=== PATIENT | male | born 1945 | race Two or more races ===

== ENCOUNTER 2019-06-09 21:10 | Emergency (ER) | payer MEDICARE, MEDICAID ==
[~2019-06-09] VITALS: Ht 182.9 cm; Wt 104.0 kg
[2019-06-09 22:15] LABS: BASOPHILS % (AUTO) 0.5 % (0-1); EOSINOPHILS # (AUTO) 0.3 X10'3 (0-0.9); EOSINOPHILS % (AUTO) 4.1 % (0-6); HEMATOCRIT 36.4 % (42.0-52.0); HEMOGLOBIN 12.7 g/dl (14.0-17.9); LYMPHOCYTES # (AUTO) 1.9 X10'3 (1.1-4.8); LYMPHOCYTES % (AUTO) 24.6 % (21-51); MEAN CORPUSCULAR HEMOGLOBIN 32.9 PG (27.0-31.0); MEAN CORPUSCULAR HGB CONC 34.9 g/dL (33.0-36.5); MEAN CORPUSCULAR VOLUME 94.1 FL (78-98); MONOCYTES # (AUTO) 0.6 X10'3 (0-0.9); MONOCYTES % (AUTO) 7.2 % (2-12); NEUTROPHILS # (AUTO) 4.9 X10'3 (1.8-7.7); NEUTROPHILS % (AUTO) 63.6 % (42-75); PLATELET COUNT 158 X10'3 (140-440); RED BLOOD COUNT 3.86 X10'6 (4.70-6.10); WHITE BLOOD COUNT 7.7 X10'3 (4.5-11.0)
[2019-06-09 22:25] LABS: PARTIAL THROMBOPLASTIN TIME 27 SECONDS (22-32)
[2019-06-09 22:31] LABS: ALANINE AMINOTRANSFERASE 32 U/L (12-78); ALBUMIN 3.2 G/DL (3.4-5.0); ALBUMIN/GLOBULIN RATIO 0.7 (1.1-1.5); ALKALINE PHOSPHATASE 103 IU/L (46-116); ANION GAP 8 (8-16); ASPARTATE AMINO TRANSFERASE 37 U/L (10-37); BILIRUBIN,TOTAL 0.2 MG/DL (0.1-1.0); BLOOD UREA NITROGEN 23 MG/DL (7-18); CALCIUM 8.3 MG/DL (8.5-10.1); CHLORIDE 110 MMOL/L (99-107); CREATININE 1.53 MG/DL (0.60-1.10); GLUCOSE 190 MG/DL (70-104); POTASSIUM 4.1 MMOL/L (3.5-5.1); SODIUM 142 MMOL/L (135-145); TOTAL CARBON DIOXIDE 24.4 MMOL/L (24-32); TOTAL PROTEIN 7.7 G/DL (6.4-8.2); eGFR 45 ML/MIN
--- NOTE | 2019-06-09 23:41 | NUR ---
PATIENT STILL UNABLE TO VOID DR MEDRANO AWARE
[2019-06-09] MEDS ORDERED: AMLO2.5T2 PO (23:55)
[2019-06-09] MEDS ORDERED: GLYB2.5T4 PO (23:56)
[2019-06-09] MEDS ORDERED: SITA1TAB6 PO (23:56)
[2019-06-09] MEDS ORDERED: LISI-600 PO (23:56)
[2019-06-09] MEDS ORDERED: FLO0.4C PO (23:56)
--- NOTE | 2019-06-09 23:56 | NUR ---
I CALLED [facility] AND SPOKE WITH PHARMACIST TO GET A CURRENT LIST OF MEDICATIONS FOR DR. MEDRANO
[2019-06-10] MEDS ORDERED: lisinopril 10 MG tablet PO ONE (00:10)
[2019-06-10] MEDS ORDERED: amLODIPine 5mg tablet PO ONE (00:10)
[2019-06-10] MEDS ORDERED: metFORMIN 500mg tablet PO ONE (00:15)
[2019-06-10] MEDS ORDERED: insulin glargine (Lantus) pen - multi-dose SQ ONE (00:30)
[2019-06-10] MEDS ORDERED: tamsulosin 0.4mg capsule PO ONE (00:30)
[2019-06-10 01:06] VITALS: BP 139/72
[2019-06-10] MEDS ORDERED: tamsulosin 0.4mg capsule PO SCH (21:00)
== END 2019-06-10 01:14 | disposition home or self-care (01) ==
LOC: ER 21:12
DX: E11.9 Type 2 diabetes mellitus without complications (principal); I10 Essential (primary) hypertension; R06.02 Shortness of breath; F41.9 Anxiety disorder, unspecified; Z79.899 Other long term (current) drug therapy
CPT/HCPCS: 36415; 71045; 80053; 82948; 84443; 84484; 85025; 85610; 85730; 93005; 96372; 99284; J1815